=== PATIENT | female | born 1950 | race Hispanic/Latino ===

== ENCOUNTER 2019-05-16 11:54 | Outpatient (CLI) | payer MEDICARE ==
--- NOTE | 2019-05-16 13:21 | XRay Report ---
CHEST XRAY, 2 VIEWS: History: Cough. Findings: There is mild diffuse interstitial coarsening. The lungs are hyperexpanded but clear. No infiltrate, pleural fluid or pneumothorax is detected. The cardiac silhouette and pulmonary vasculature are within normal limits for technique. Severe scoliosis is noted. Leads to mechanical device tracks superiorly in the left neck soft tissues. IMPRESSION: Changes consistent with COPD. No acute cardiopulmonary process.
== END 2019-05-16 11:55 | disposition home or self-care (01) ==
LOC: XRAY 11:54
PROVIDERS: ATTEND Specialist
DX: J44.9 Chronic obstructive pulmonary disease, unspecified (principal); M41.80 Other forms of scoliosis, site unspecified
CPT/HCPCS: 71046

== ENCOUNTER 2019-11-30 11:13 | Inpatient (IN) | payer MEDICARE ==
--- NOTE | 2019-11-30 11:23 | Event Note ---
ED Screening Note Date of service: 11/30/19 Time: 11:21 ED Screening Note: 69 y o f with PMH of COPD presents with sob This initial assessment/diagnostic orders/clinical plan/treatment(s) is/are subject to change based on patients health status, clinical progression and re- assessment by fellow clinical providers in the ED. Further treatment and workup at subsequent clinical providers discretion. Patient/guardian urged not to elope from the ED as their condition may be serious if not clinically assessed and managed. Initial orders include: cxr O2 in triage Main side eval
--- NOTE | 2019-11-30 12:09 | XRay Report ---
CHEST PA AND LATERAL VIEWS INDICATION: Dyspnea. COMPARISON: 05/16/2019. FINDINGS: Support devices: None. Heart: Within normal limits. Lungs/Pleura: No acute pulmonary or pleural findings. Thoracolumbar scoliosis is again noted. IMPRESSION: 1. No acute findings. Signer Name: Jorden Perez MD Signed: 11/30/2019 12:05 PM Workstation Name: [id number]
[2019-11-30 12:10] LABS: Basophils % (Auto) 0.6 % (0.0-1.8); Eosinophils # (Auto) 0.1 K/mm3 (0.0-0.4); Eosinophils % (Auto) 1.8 % (0.0-4.3); Hematocrit 40.6 % (30.3-42.9); Hemoglobin 13.7 gm/dl (10.1-14.3); Lymphocytes # (Auto) 1.7 K/mm3 (1.2-5.4); Lymphocytes % (Auto) 21.9 % (13.4-35.0); Mean Corpuscular HGB Conc 34 % (30-34); Mean Corpuscular Volume 105 fl (79-97); Monocytes # (Auto) 0.3 K/mm3 (0.0-0.8); Monocytes % (Auto) 4.6 % (0.0-7.3); Platelet Count 286 K/mm3 (140-440); Red Blood Count 3.87 M/mm3 (3.65-5.03); Red Cell Distribution Width 14.9 % (13.2-15.2)
[2019-11-30] MEDS ORDERED: clonazePAM 0.5 MG TAB PO ONE (12:17)
[2019-11-30] MEDS ORDERED: ALBUTEROL 2.5 MG/3 ML NEBU IH ONE (12:17)
[2019-11-30] MEDS ORDERED: IPRATROPIUM 0.02% NEBU 2.5 ML IH ONE (12:17)
[2019-11-30] MEDS ORDERED: methylPREDNISolone Sod Succinate 125 MG/2 ML INJ IV ONE (12:17)
[2019-11-30] MEDS ORDERED: MAGNESIUM SULFATE 2 GM/50 ML BAG IV ONE (12:17)
[2019-11-30 12:31] LABS: BUN/Creatinine Ratio 35; Blood Urea Nitrogen 14 mg/dL (7-17); Calcium 8.5 mg/dL (8.4-10.2); Hemolysis Index 11
--- NOTE | 2019-11-30 12:49 | Emergency Department Report ---
ED Shortness of Breath HPI - General Chief Complaint: Dyspnea/Respdistress Stated Complaint: ANGELIQUE Time Seen by Provider: 11/30/19 12:10 Source: patient Mode of arrival: Ambulatory Limitations: No Limitations - History of Present Illness Initial Comments: 69-year-old female the past medical history of asthma, COPD without oxygen dependence and continued smoking presents to the hospital complaining of wheezing and shortness breath reported missing today. She ran out of her inhaler several days ago. Patient does not have a nebulizer. She denies previ ous intubations. She complains of a dry cough without fever or chest pain. Manufacturing Software Engineer: Dr Mercado. - Related Data Home Medications Medication Instructions Recorded Confirmed Last Taken Mirtazapine [Remeron 30mg TAB] 30 mg PO HS 10/15/13 11/13/18 11/03/18 20:00 Mometasone/Formoterol [Dulera 100 2 puff IH BID 09/08/14 11/12/18 11/04/18 06:30 Mcg/5 Mcg Inhaler] Albuterol Sulfate [Ventolin HFA] 2 puff IH PRN PRN 11/03/18 11/12/18 11/04/18 06:30 Ipratropium [place] [Atrovent Hfa] 12.9 gm IH PRN PRN 11/03/18 11/12/18 11/04/18 06:30 Levothyroxine [Synthroid] 25 mcg PO QAM 11/03/18 11/12/18 11/04/18 06:30 clonazePAM [Klonopin] 1 mg PO HS 11/03/18 11/13/18 11/03/18 21:00 Klonopin 0.5 mg PO QAM 11/13/18 11/13/18 Unknown Previous Rx's Medication Instructions Recorded Last Taken Type oxyCODONE [roxiCODONE] 5 mg PO Q6HR PRN #20 tablet 11/04/18 11/11/18 08:00 Rx predniSONE [Deltasone] 0 mg PO QDAY 16 Days tab 11/15/18 Unknown Rx Allergies Allergy/AdvReac Type Severity Reaction Status Date / Time ibuprofen Allergy Vomiting Verified 11/12/18 21:18 hydrocodone bitartrate AdvReac Itching Verified 11/12/18 21:18 [From Vicodin] Sulfa (Sulfonamide AdvReac Vomiting Verified 11/12/18 21:18 Antibiotics) ED Review of Systems ROS: Stated complaint: ANGELIQUE Other details as noted in HPI Comment: All other systems reviewed and negative ED Past Medical Hx - Past Medical History Previous Medical History?: Yes Hx Hypertension: No Hx Congestive Heart Failure: No Hx Diabetes: No Hx Arthritis: Yes Hx Headaches / Migraines: Yes (MIGRAINES) Hx Asthma: Yes (bronchitis) Hx COPD: Yes (DAILY INHALERS) Hx HIV: No Additional medical history: HAND TREMORS, Bronchitis, Central Hand Tremors - Surgical History Past Surgical History?: Yes Hx Cholecystectomy: Yes Additional Surgical History: tubal ligation, left arm fracture 09/2018, BRAIN Stimulator - Social History Smoking Status: Current Every Day Smoker Substance Use Type: None - Medications Home Medications: Home Medications Medication Instructions Recorded Confirmed Last Taken Type Mirtazapine [Remeron 30mg TAB] 30 mg PO HS 10/15/13 11/13/18 11/03/18 20:00 History Mometasone/Formoterol [Dulera 100 2 puff IH BID 09/08/14 11/12/18 11/04/18 06:30 History Mcg/5 Mcg Inhaler] Albuterol Sulfate [Ventolin HFA] 2 puff IH PRN PRN 11/03/18 11/12/18 11/04/18 06:30 History Ipratropium [place] [Atrovent Hfa] 12.9 gm IH PRN PRN 11/03/18 11/12/18 11/04/18 06:30 History Levothyroxine [Synthroid] 25 mcg PO QAM 11/03/18 11/12/18 11/04/18 06:30 History clonazePAM [Klonopin] 1 mg PO HS 11/03/18 11/13/18 11/03/18 21:00 History oxyCODONE [roxiCODONE] 5 mg PO Q6HR PRN #20 tablet 11/04/18 11/12/18 11/11/18 08:00 Rx Klonopin 0.5 mg PO QAM 11/13/18 11/13/18 Unknown History predniSONE [Deltasone] 0 mg PO QDAY 16 Days tab 11/15/18 Unknown Rx ED Physical Exam - General Limitations: No Limitations - Other Other exam information: General: No acute distress Head: Atraumatic Eyes: normal appearance ENT: Moist mucous membranes Neck: Normal appearance, no midline tenderness Chest: Tachypnea, wheezing CV: Tachycardic regular rhythm Abdomen: Soft, normal bowel sounds, nontender, nondistended, no rebound or guarding Back: Normal inspection Extremity: Normal inspection, full range of motion, no calf tenderness or leg edema Neuro: Alert O x 3, no facial asymmetry, speech clear, no gross motor sensory deficit Psych: Appropriate behavior Skin: No rash ED Course Vital Signs 11/30/19 11/30/19 11/30/19 11:17 12:16 12:28 Temperature 99.2 F 98.7 F Pulse Rate 121 H 109 H Pulse Rate [ 106 H Anterior Bilateral Throughout] Respiratory 18 18 Rate Respiratory 24 Rate [Anterior Bilateral Throughout] Blood Pressure 122/54 Blood Pressure 113/62 [Right] O2 Sat by Pulse 63 L 95 Oximetry ED Medical Decision Making - Lab Data Result diagrams: 11/30/19 11:47 11/30/19 11:47 Lab Results 11/30/19 11/30/19 Range/Units 11:47 11:47 WBC 7.6 (4.5-11.0) K/mm3 RBC 3.87 (3.65-5.03) M/mm3 Hgb 13.7 (10.1-14.3) gm/dl Hct 40.6 (30.3-42.9) % MCV 105 H (79-97) fl MCH 36 H (28-32) pg MCHC 34 (30-34) % RDW 14.9 (13.2-15.2) % Plt Count 286 (140-440) K/mm3 Lymph % (Auto) 21.9 (13.4-35.0) % [place] % (Auto) 4.6 (0.0-7.3) % Eos % (Auto) 1.8 (0.0-4.3) % Baso % (Auto) 0.6 (0.0-1.8) % Lymph # 1.7 (1.2-5.4) K/mm3 [place] # 0.3 (0.0-0.8) K/mm3 Eos # 0.1 (0.0-0.4) K/mm3 Baso # 0.0 (0.0-0.1) K/mm3 Seg Neutrophils % 71.1 H (40.0-70.0) % Seg Neutrophils # 5.4 (1.8-7.7) K/mm3 Sodium 144 (137-145) mmol/L Potassium 4.1 (3.6-5.0) mmol/L Chloride 105.3 (98-107) mmol/L Carbon Dioxide 29 (22-30) mmol/L Anion Gap 14 mmol/L BUN 14 (7-17) mg/dL Creatinine 0.4 L (0.7-1.2) mg/dL Estimated GFR > 60 ml/min BUN/Creatinine Ratio 35 % Glucose 122 H (65-100) mg/dL Calcium 8.5 (8.4-10.2) mg/dL - EKG Data -: EKG Interpreted by Me EKG shows normal: sinus rhythm, ST-T waves (no stemi) Rate: tachycardia (106) - Radiology Data Radiology results: report reviewed CHEST PA AND LATERAL VIEWS INDICATION: Dyspnea. COMPARISON: 05/16/2019. FINDINGS: Support devices: None. Heart: Within normal limits. Lungs/Pleura: No acute pulmonary or pleural findings. Thoracolumbar scoliosis is again noted. IMPRESSION: 1. No acute findings. - Medical Decision Making Patient presents to the hospital with COPD exacerbation with hypoxia and did not have any of her medications at home. Patient treated in the ER with bronchodilators, Solu-Medrol, and magnesium with some improvement. Patient also chronically on Klonopin. She reports she takes Klonopin 0.5mg twice a day last dose yesterday AM. Given the patient presented with tachycardia she was given Klonopin 0.5 mg during her treatment here today. Hospitalist Dr Austin informed for admission. - Differential Diagnosis bronchitis, pneumonia, asthma Critical Care Time: No Critical care attestation.: If time is entered above; I have spent that time in minutes in the direct care of this critically ill patient, excluding procedure time. ED Disposition Clinical Impression: COPD with acute exacerbation, Hypoxia Disposition: OP ADMIT IP TO THIS HOSP Is pt being admited?: Yes Condition: Stable Time of Disposition: 12:48 (DR galeana/leslie Austin)
[2019-11-30] MEDS ORDERED: oxyCODONE 5 MG TAB PO PRN (14:12)
[2019-11-30] MEDS ORDERED: ALBUTEROL 2.5 MG/3 ML NEBU IH PRN (14:14)
[2019-11-30] MEDS ORDERED: ONDANSETRON 4 MG/2 ML INJ IV PRN (14:14)
[2019-11-30] MEDS ORDERED: ACETAMINOPHEN 325 MG TAB PO PRN (14:14)
--- NOTE | 2019-11-30 14:14 | History and Physical Report ---
History of Present Illness Date of admission: 11/30/19 12:50 Chief complaint: sob History of present illness: 69-year-old woman with past medical history of COPD, patient known to Dr. Mercado. She presents with shortness of breath. She reports running out of her inhaler several days ago. She does not use a nebulizer at home. Has symptoms associated with nonproductive cough, she denies fever or chest pain. She also admits wheezing. The patient reports ongoing tobacco abuse. PAST MEDICAL HISTORY:COPD, migraine PAST SURGICAL HISTORY: : gall bladder tubal ligation, surgery on left arm after fracture, BRAIN Stimulator SOCIAL HISTORY: No alcohol, no drugs, current everyday smoker FAMILY HISTORY: Hypertension Medications and Allergies Allergies Allergy/AdvReac Type Severity Reaction Status Date / Time ibuprofen Allergy Vomiting Verified 11/12/18 21:18 hydrocodone bitartrate AdvReac Itching Verified 11/12/18 21:18 [From Vicodin] Sulfa (Sulfonamide AdvReac Vomiting Verified 11/12/18 21:18 Antibiotics) Home Medications Medication Instructions Recorded Confirmed Last Taken Type Mirtazapine [Remeron 30mg TAB] 30 mg PO HS 10/15/13 11/13/18 11/03/18 20:00 History Mometasone/Formoterol [Dulera 100 2 puff IH BID 09/08/14 11/12/18 11/04/18 06:30 History Mcg/5 Mcg Inhaler] Albuterol Sulfate [Ventolin HFA] 2 puff IH PRN PRN 11/03/18 11/12/18 11/04/18 06:30 History Ipratropium [place] [Atrovent Hfa] 12.9 gm IH PRN PRN 11/03/18 11/12/18 11/04/18 06:30 History Levothyroxine [Synthroid] 25 mcg PO QAM 11/03/18 11/12/18 11/04/18 06:30 History clonazePAM [Klonopin] 1 mg PO HS 11/03/18 11/13/18 11/03/18 21:00 History oxyCODONE [roxiCODONE] 5 mg PO Q6HR PRN #20 tablet 11/04/18 11/12/18 11/11/18 08:00 Rx Klonopin 0.5 mg PO QAM 11/13/18 11/13/18 Unknown History predniSONE [Deltasone] 0 mg PO QDAY 16 Days tab 11/15/18 Unknown Rx Active Meds: Active Medications Levothyroxine Sodium (Synthroid) 25 mcg PO QAM MARTHA Mirtazapine (Remeron) 30 mg PO HS MARTHA Miscellaneous Medication (Clonazepam [Klonopin]) 1 mg PO HS MARTHA Miscellaneous Medication (Klonopin) 0.5 mg PO QAM MARTHA Oxycodone HCl (Roxicodone) 5 mg PO Q6HR PRN PRN Reason: PAIN Review of Systems All systems: negative (sob, cough and wheezing) Exam - Constitutional Vitals: Temp Pulse Resp BP Pulse Ox 98.7 F 105 H 19 123/63 98 11/30/19 12:16 11/30/19 13:00 11/30/19 13:00 11/30/19 13:00 11/30/19 13:00 General appearance: Present: mild distress, well-nourished - EENT Eyes: Present: PERRL ENT: hearing intact, clear oral mucosa - Neck Neck: Present: supple, normal ROM - Respiratory Respiratory effort: normal Respiratory: bilateral: diminished, wheezing - Cardiovascular Heart Sounds: Present: S1 & S2. Absent: rub, click - Extremities Extremities: pulses symmetrical, No edema Peripheral Pulses: within normal limits - Abdominal General gastrointestinal: Present: soft, non-tender, non-distended, normal bowel sounds Female genitourinary: Present: normal - Integumentary Integumentary: Present: clear, warm, dry - Musculoskeletal Musculoskeletal: gait normal, strength equal bilaterally - Psychiatric Psychiatric: appropriate mood/affect, intact judgment & insight - Neurologic Neurologic: CNII-XII intact, moves all extremities Results - Labs CBC & Chem 7: 11/30/19 11:47 11/30/19 11:47 Labs: Laboratory Last Values WBC 7.6 K/mm3 (4.5-11.0) 11/30/19 11:47 RBC 3.87 M/mm3 (3.65-5.03) 11/30/19 11:47 Hgb 13.7 gm/dl (10.1-14.3) 11/30/19 11:47 Hct 40.6 % (30.3-42.9) 11/30/19 11:47 MCV 105 fl (79-97) H 11/30/19 11:47 MCH 36 pg (28-32) H 11/30/19 11:47 MCHC 34 % (30-34) 11/30/19 11:47 RDW 14.9 % (13.2-15.2) 11/30/19 11:47 Plt Count 286 K/mm3 (140-440) 11/30/19 11:47 Lymph % (Auto) 21.9 % (13.4-35.0) 11/30/19 11:47 [place] % (Auto) 4.6 % (0.0-7.3) 11/30/19 11:47 Eos % (Auto) 1.8 % (0.0-4.3) 11/30/19 11:47 Baso % (Auto) 0.6 % (0.0-1.8) 11/30/19 11:47 Lymph # 1.7 K/mm3 (1.2-5.4) 11/30/19 11:47 [place] # 0.3 K/mm3 (0.0-0.8) 11/30/19 11:47 Eos # 0.1 K/mm3 (0.0-0.4) 11/30/19 11:47 Baso # 0.0 K/mm3 (0.0-0.1) 11/30/19 11:47 Seg Neutrophils % 71.1 % (40.0-70.0) H 11/30/19 11:47 Seg Neutrophils # 5.4 K/mm3 (1.8-7.7) 11/30/19 11:47 Sodium 144 mmol/L (137-145) 11/30/19 11:47 Potassium 4.1 mmol/L (3.6-5.0) 11/30/19 11:47 Chloride 105.3 mmol/L (98-107) 11/30/19 11:47 Carbon Dioxide 29 mmol/L (22-30) 11/30/19 11:47 Anion Gap 14 mmol/L 11/30/19 11:47 BUN 14 mg/dL (7-17) 11/30/19 11:47 Creatinine 0.4 mg/dL (0.7-1.2) L 11/30/19 11:47 Estimated GFR > 60 ml/min 11/30/19 11:47 BUN/Creatinine Ratio 35 % 11/30/19 11:47 Glucose 122 mg/dL (65-100) H 11/30/19 11:47 Calcium 8.5 mg/dL (8.4-10.2) 11/30/19 11:47 Assessment and Plan Assessment and plan: 61-year-old woman who presents to the hospital shortness of breath and wheezing, dry cough, consistent with COPD exacerbation Chest x-ray; no acute findings patient is here Copd exacerbation; steroids, nebs, pulmonology consults, aggressive chest PT Acute hypoxic respiratory failure; continue supplemental oxygen, she desaturated to the 60s in the ER, now improved after treatments and oxygen Tobacco abuse/dependence Smoking cessation counseling performed for 10 minutes, nicotine patches when necessary Preventative health counseling performed for 17 minutes Hypothyroidism; continue Synthroid, check thyroid function tests she reports running out of her inhalers and home medications. Patient will need refills of all her medications prior to discharge dvt ppx lovenox
--- NOTE | 2019-11-30 15:13 | Consultation ---
History of Present Illness Consult date: 11/30/19 Requesting physician: ANDREW SCHMIDT Reason for consult: COPD History of present illness: 69 y/o female, last admitted to the hospital in 2018 admitted with COPD exacerbation. Per chart, patient ran out of medicine several days ago. No calls made to office for refills. CXR is negative. Past History Past Medical History: COPD, hypothyroidism, other (insomnia/anxiety) Past Surgical History: No surgical history Social history: no significant social history Family history: no significant family history Medications and Allergies Allergies Allergy/AdvReac Type Severity Reaction Status Date / Time ibuprofen Allergy Vomiting Verified 11/12/18 21:18 hydrocodone bitartrate AdvReac Itching Verified 11/12/18 21:18 [From Vicodin] Sulfa (Sulfonamide AdvReac Vomiting Verified 11/12/18 21:18 Antibiotics) Home Medications Medication Instructions Recorded Confirmed Last Taken Type Mirtazapine [Remeron 30mg TAB] 30 mg PO HS 10/15/13 11/13/18 11/03/18 20:00 History Mometasone/Formoterol [Dulera 100 2 puff IH BID 09/08/14 11/12/18 11/04/18 06:30 History Mcg/5 Mcg Inhaler] Albuterol Sulfate [Ventolin HFA] 2 puff IH PRN PRN 11/03/18 11/12/18 11/04/18 06:30 History Ipratropium [place] [Atrovent Hfa] 12.9 gm IH PRN PRN 11/03/18 11/12/18 11/04/18 06:30 History Levothyroxine [Synthroid] 25 mcg PO QAM 11/03/18 11/12/18 11/04/18 06:30 History clonazePAM [Klonopin] 1 mg PO HS 11/03/18 11/13/18 11/03/18 21:00 History oxyCODONE [roxiCODONE] 5 mg PO Q6HR PRN #20 tablet 11/04/18 11/12/18 11/11/18 08:00 Rx Klonopin 0.5 mg PO QAM 11/13/18 11/13/18 Unknown History predniSONE [Deltasone] 0 mg PO QDAY 16 Days tab 11/15/18 Unknown Rx Active Meds: Active Medications Acetaminophen (Tylenol) 650 mg PO Q4H PRN PRN Reason: Pain MILD(1-3)/Fever >100.5/[place]UR[place] Albuterol (Proventil) 2.5 mg IH Q4HRT PRN PRN Reason: Shortness Of Breath Albuterol/Ipratropium (Duoneb *Not For Prn Use*) 1 ampul IH Q6HRT MARTHA Budesonide (Pulmicort) 0.5 mg IH Q12HRT MARTHA Clonazepam (Klonopin) 1 mg PO QHS MARTHA Clonazepam (Klonopin) 0.5 mg PO QAM MARTHA Levothyroxine Sodium (Synthroid) 25 mcg PO QAM MARTHA Methylprednisolone Sodium Succinate (Solu-Medrol) 40 mg IV Q8HR MARTHA Mirtazapine (Remeron) 30 mg PO HS MARTHA Ondansetron HCl (Zofran) 4 mg IV Q8H PRN PRN Reason: Nausea And Vomiting Oxycodone HCl (Roxicodone) 5 mg PO Q6HR PRN PRN Reason: PAIN Sodium Chloride (Sodium Chloride Flush Syringe 10 Ml) 10 ml IV BID MARTHA Sodium Chloride (Sodium Chloride Flush Syringe 10 Ml) 10 ml IV PRN PRN PRN Reason: LINE FLUSH Stop: 12/03/19 14:13 Review of Systems All systems: negative Physical Examination Vital signs: Vital Signs Temp Pulse Resp BP Pulse Ox 99.2 F 121 H 18 122/54 63 L 11/30/19 11:17 11/30/19 11:17 11/30/19 11:17 11/30/19 11:17 11/30/19 11:17 General appearance: no acute distress, alert Eyes: non-icteric Neck: supple Effort: normal Ascultation: Bilateral: diminished breath sounds, wheezes Results - Laboratory Findings CBC and BMP: 11/30/19 11:47 12/01/19 05:22 Abnormal lab findings: Abnormal Labs 11/30/19 11/30/19 11:47 11:47 MCV 105 H MCH 36 H Seg Neutrophils % 71.1 H Creatinine 0.4 L Glucose 122 H Assessment and Plan 69 y/o female with COPD exacerbation 1. Agree with no abx therapy given clear CXR and no white count 2. Continue IV steroids, can likely change to PO prednisone at 60 daily starting tomorrow and taper over two weeks time frame 3. Resume home medications and please provide refills for what she needs
[2019-11-30] MEDS: methylPREDNISolone Sod Succinate 40 MG/1 ML INJ IV SCH ×2 (16:23→22:34)
[2019-11-30] MEDS: IPRATROPIUM/ALBUTEROL SULFATE 3 ML AMPUL.NEB IH SCH ×2 (16:33→21:22)
[2019-11-30] MEDS: BUDESONIDE 0.5 MG/2 ML NEBU IH SCH (21:22)
[2019-11-30] MEDS: ARFORMOTEROL 15 MCG/2 ML NEBU IH SCH (21:22)
[2019-11-30] MEDS ORDERED: MIRTAZAPINE 30 MG TAB PO SCH (22:00)
[2019-11-30] MEDS ORDERED: clonazePAM 0.5 MG TAB PO SCH (22:00)
[2019-11-30] MEDS ORDERED: NON-FORMULARY EACH (Clonazepam [Klonopin] 1 MG) PO SCH (22:00)
[2019-11-30] MEDS: NICOTINE 14 MG/24 HR PATCH TD SCH (22:33)
[2019-11-30] MEDS: ENOXAPARIN 40 MG/0.4 ML INJ SUB-Q SCH (22:34)
[2019-12-01] MEDS: IPRATROPIUM/ALBUTEROL SULFATE 3 ML AMPUL.NEB IH SCH ×4 (03:07→20:37)
[2019-12-01] MEDS: methylPREDNISolone Sod Succinate 40 MG/1 ML INJ IV SCH ×3 (05:36→21:20)
[2019-12-01 06:16] LABS: BUN/Creatinine Ratio 45; Blood Urea Nitrogen 18 mg/dL (7-17); Calcium 8.1 mg/dL (8.4-10.2); Hemolysis Index 14
[2019-12-01] MEDS: ARFORMOTEROL 15 MCG/2 ML NEBU IH SCH ×2 (08:03→20:36)
[2019-12-01] MEDS: BUDESONIDE 0.5 MG/2 ML NEBU IH SCH ×2 (08:03→20:36)
[2019-12-01] MEDS ORDERED: KLONOPIN 0.5 MG PO SCH (10:00)
[2019-12-01] MEDS ORDERED: clonazePAM 0.5 MG TAB PO SCH (10:00)
[2019-12-01] MEDS: NICOTINE 14 MG/24 HR PATCH TD SCH (10:31)
[2019-12-01] MEDS: LEVOTHYROXINE 25 MCG TAB PO SCH (10:32)
--- NOTE | 2019-12-01 10:59 | Progress Note ---
Assessment and Plan Assessment and plan: 69-year-old woman with past medical history of COPD, patient known to Dr. Mercado. She presents with shortness of breath. She reports running out of her inhaler several days ago. She does not use a nebulizer at home. Has symptoms associated with nonproductive cough, she denies fever or chest pain. She also admits wheezing. The patient reports ongoing tobacco abuse. Appears lethargic, Still Cough Taper steroids Very stressful condition at home tobacco dependance anticipate discharge in am 61-year-old woman who presents to the hospital shortness of breath and wheezing, dry cough, consistent with COPD exacerbation Chest x-ray; no acute findings patient is here Copd exacerbation; steroids, nebs, pulmonology consults input and recommendation noted, aggressive chest PT Acute hypoxic respiratory failure; continue supplemental oxygen, she desaturated to the 60s in the ER, now improved after treatments and oxygen Tobacco abuse/dependence Smoking cessation counseling performed for 10 minutes, nicotine patches when necessary Preventative health counseling performed for 17 minutes Hypothyroidism; continue Synthroid, check thyroid function tests she reports running out of her inhalers and home medications. Patient will need refills of all her medications prior to discharge dvt ppx lovenox Extensive discussion with the patient about need to seek for help considering the stressful condition at home she verbalized understanding. She will discuss with her family members. Anticipate discharge in a.m. History Interval history: Patient seen and examined this morning reports improvement but not quite at her baseline she still has persistent cough. She still unfortunately smokes although she states that she had cut down from 3 packs to half a pack a day. She reports that her is sick and the only way she pete with it is with her Klonopin and tobacco. She still has some expiratory wheezes Hospitalist Physical - Physical exam Narrative exam: VITAL SIGNS: Reviewed. GENERAL: The patient appears chronically ill, cachectic, Vital signs as documented. HEAD: No signs of head trauma. EYES: Pupils are equal. Extraocular motions intact. EARS: Hearing grossly intact. MOUTH: Oropharynx is normal. NECK: No adenopathy, no JVD. CHEST: Chest with wheezing breath sounds bilaterally expiratory moderate expiratory. No, rales, or rhonchi. CARDIAC: Regular rate and rhythm. S1 and S2, without murmurs, gallops, or rubs. VASCULAR: No Edema. Peripheral pulses normal and equal in all extremities. ABDOMEN: Soft, non tender and non distended. No rebound or guarding, and no masses palpated. Bowel Sounds normal. MUSCULOSKELETAL: Good range of motion of all major joints. Extremities without clubbing, cyanosis or edema. NEUROLOGIC EXAM: Alert and oriented x 3 No focal sensory or strength deficits. Speech normal. Follows commands. PSYCHIATRIC: Mood normal. SKIN: detial exam as documented in skin assessment - Constitutional Vitals: Temp Pulse Resp BP Pulse Ox 98.2 F 91 H 18 100/57 92 12/01/19 07:35 12/01/19 08:03 12/01/19 08:03 12/01/19 07:35 12/01/19 08:01 General appearance: Present: mild distress, well-nourished Results - Labs CBC & Chem 7: 11/30/19 11:47 12/01/19 05:22 Labs: Laboratory Last Values WBC 7.6 K/mm3 (4.5-11.0) 11/30/19 11:47 RBC 3.87 M/mm3 (3.65-5.03) 11/30/19 11:47 Hgb 13.7 gm/dl (10.1-14.3) 11/30/19 11:47 Hct 40.6 % (30.3-42.9) 11/30/19 11:47 MCV 105 fl (79-97) H 11/30/19 11:47 MCH 36 pg (28-32) H 11/30/19 11:47 MCHC 34 % (30-34) 11/30/19 11:47 RDW 14.9 % (13.2-15.2) 11/30/19 11:47 Plt Count 286 K/mm3 (140-440) 11/30/19 11:47 Lymph % (Auto) 21.9 % (13.4-35.0) 11/30/19 11:47 Ralls % (Auto) 4.6 % (0.0-7.3) 11/30/19 11:47 Eos % (Auto) 1.8 % (0.0-4.3) 11/30/19 11:47 Baso % (Auto) 0.6 % (0.0-1.8) 11/30/19 11:47 Lymph # 1.7 K/mm3 (1.2-5.4) 11/30/19 11:47 Ralls # 0.3 K/mm3 (0.0-0.8) 11/30/19 11:47 Eos # 0.1 K/mm3 (0.0-0.4) 11/30/19 11:47 Baso # 0.0 K/mm3 (0.0-0.1) 11/30/19 11:47 Seg Neutrophils % 71.1 % (40.0-70.0) H 11/30/19 11:47 Seg Neutrophils # 5.4 K/mm3 (1.8-7.7) 11/30/19 11:47 Sodium 141 mmol/L (137-145) 12/01/19 05:22 Potassium 4.2 mmol/L (3.6-5.0) 12/01/19 05:22 Chloride 102.9 mmol/L (98-107) 12/01/19 05:22 Carbon Dioxide 26 mmol/L (22-30) 12/01/19 05:22 Anion Gap 16 mmol/L 12/01/19 05:22 BUN 18 mg/dL (7-17) H 12/01/19 05:22 Creatinine 0.4 mg/dL (0.7-1.2) L 12/01/19 05:22 Estimated GFR > 60 ml/min 12/01/19 05:22 BUN/Creatinine Ratio 45 % 12/01/19 05:22 Glucose 149 mg/dL (65-100) H 12/01/19 05:22 Calcium 8.1 mg/dL (8.4-10.2) L 12/01/19 05:22 TSH 0.276 mlU/mL (0.270-4.200) 12/01/19 05:22 Free T4 0.80 ng/dL (0.76-1.46) 12/01/19 05:22 Thyroxine (T4) 5.7 ug/dL (4.0-12.0) 12/01/19 05:22 Active Medications - Current Medications Current Medications: Generic Name Dose Route Start Last Admin Trade Name Freq PRN Reason Stop Dose Admin Acetaminophen 650 mg 11/30/19 14:14 Tylenol PO Q4H PRN Pain MILD(1-3)/Fever >100.5/TURNER Albuterol 2.5 mg 11/30/19 14:14 11/30/19 16:33 Proventil IH 2.5 mg Q4HRT PRN Administration Shortness Of Breath Albuterol/Ipratropium 1 ampul 11/30/19 14:15 12/01/19 08:03 Duoneb *Not For Prn Use* IH Not Given Q6HRT MARTHA Arformoterol Tartrate 15 mcg 11/30/19 20:00 12/01/19 08:03 Brovana Nebu IH 15 mcg Q12HRT MARTHA Administration Budesonide 0.5 mg 11/30/19 20:00 12/01/19 08:03 Pulmicort IH 0.5 mg Q12HRT MARTHA Administration Clonazepam 1 mg 11/30/19 22:00 11/30/19 22:34 Klonopin PO 1 mg QHS MARTHA Administration Clonazepam 0.5 mg 12/01/19 10:00 12/01/19 10:33 Klonopin PO 0.5 mg QAM MARTHA Administration Enoxaparin Sodium 40 mg 11/30/19 22:00 11/30/19 22:34 Enoxaparin SUB-Q 40 mg QDAY@2200 [facility] Administration Levothyroxine Sodium 25 mcg 12/01/19 10:00 12/01/19 10:32 Synthroid PO 25 mcg QAM [facility] Administration Methylprednisolone Sodium Succinate 40 mg 11/30/19 15:00 12/01/19 05:36 Solu-Medrol IV 40 mg Q8HR MARTHA Administration Mirtazapine 30 mg 11/30/19 22:00 11/30/19 22:34 Remeron PO 30 mg HS [facility] Administration Nicotine 14 mg 11/30/19 19:00 12/01/19 10:31 Habitrol TD Not Given QDAY [facility] Ondansetron HCl 4 mg 11/30/19 14:14 Zofran IV Q8H PRN Nausea And Vomiting Oxycodone HCl 5 mg 11/30/19 14:12 Roxicodone PO Q6HR PRN PAIN Sodium Chloride 10 ml 11/30/19 22:00 12/01/19 10:33 Sodium Chloride Flush Syringe 10 Ml IV 10 ml BID MARTHA Administration Sodium Chloride 10 ml 11/30/19 14:14 Sodium Chloride Flush Syringe 10 Ml IV 12/03/19 14:13 PRN PRN LINE FLUSH Nutrition/Malnutrition Assess - Dietary Evaluation Nutrition/Malnutrition Findings: Nutrition Notes Start: 12/01/19 10:23 Freq: Status: Active Protocol: Document 12/01/19 10:23 LP (Rec: 12/01/19 10:35 LP [id number]) Nutrition Notes Need for Assessment generated from: MD Order Initial or Follow up Assessment Current Diagnosis COPD Other Pertinent Diagnosis Asthma, right and left elbow wound Current Diet Regular Labs/Tests BUN 18 BG 149 Pertinent Medications Solumedrol Height 5 ft 3 in Weight 45.359 kg Usual Body Weight 59 kg [place] Body Weight (kg) 52.27 BMI 17.6 Intake Prior to Admission Good Weight change and time frame 23% wt loss in 5 months Weight Status Underweight Subjective/Other Information Consult for supplement. Pt states eating well [employer], but lost wt. Pt states being stressed from of daughter as well as husbands deteriorating health. Pt states not eating this morning because she did not like the food. Food preferences noted. Pt denies need for supplement. Burn Absent Trauma Absent GI Symptoms None Current % PO Poor (25-49%) Minimum of two criteria No Interpretation of Weight Loss (severe) >7.5% in 3 months #2 Nutrition Diagnosis Predicted suboptimal energy intake Etiology food preferences As Evidenced by Signs and Symptoms Pt did not eat breakfast this AM due to not liking food. #1 Nutrition Diagnosis Unintended weight loss Etiology COPD/stress As Evidenced by Signs and Symptoms Pt states wt loss of 23% in 5 months, but was eating well. Is patient on ventilator? No Is Patient Ambulatory and/or Out of Bed No REE-([facility]-confined to bed) 1149.240 Kcal/Kg value to use for calculation 35 Approximate Energy Requirements Using 1588 kcal/Kg Calculation Used for Recommendations Kcal/kg Additional Notes Protein needs are 45-54g (1.2- 1.5g/kg) Fluid needs are 1ml/kcal Nutrition Intervention Change Diet Order: Continue Add Supplement/Snack (indicate name/kcal Denies need /protein ) Goal #1 Meet at least 80% of kcal and protein needs Goal #2 Wt maintenance/gain Anticipated Discharge Needs: Regular diet Follow-Up By: 12/05/19 Additional Comments Follow for intakes
--- NOTE | 2019-12-01 16:35 | Progress Note ---
Assessment and Plan 69 y/o female with COPD exacerbation 1. Agree with no abx therapy given clear CXR and no white count 2. Discharge on Prednisone 60 daily for 3 days, 40 daily for 3 days, 20 daily for 3 days, then stop 3. Resume home regimen 4. Follow up in office in 10-14 days. Subjective Date of service: 12/01/19 Interval history: No acute events. Ready to go home. Objective Vital Signs - 12hr 12/01/19 12/01/19 12/01/19 07:35 08:01 08:03 Temperature 98.2 F Pulse Rate 87 Pulse Rate [ 91 H Anterior Bilateral Throughout] Respiratory 20 Rate Respiratory 18 Rate [Anterior Bilateral Throughout] Blood Pressure 100/57 O2 Sat by Pulse 91 92 Oximetry 12/01/19 12/01/19 13:46 14:14 Temperature 98.1 F Pulse Rate 89 Pulse Rate [ 90 Anterior Bilateral Throughout] Respiratory 20 Rate Respiratory 20 Rate [Anterior Bilateral Throughout] Blood Pressure 104/60 O2 Sat by Pulse 93 Oximetry Constitutional: no acute distress, alert Eyes: non-icteric Neck: supple Effort: normal Ascultation: Bilateral: diminished breath sounds, wheezes CBC and BMP: 11/30/19 11:47 12/01/19 05:22 Abnormal lab findings: Abnormal Labs 11/30/19 11/30/19 12/01/19 11:47 11:47 05:22 MCV 105 H MCH 36 H Seg Neutrophils % 71.1 H BUN 18 H Creatinine 0.4 L 0.4 L Glucose 122 H 149 H Calcium 8.1 L
[2019-12-01] MEDS: ENOXAPARIN 40 MG/0.4 ML INJ SUB-Q SCH (21:19)
[2019-12-01] MEDS: clonazePAM 0.5 MG TAB PO SCH (21:19)
[2019-12-01] MEDS: MIRTAZAPINE 30 MG TAB PO SCH (21:20)
[2019-12-01] MEDS ORDERED: FORMOTEROL IH SCH (22:00)
[2019-12-01] MEDS ORDERED: MOMETASONE IH SCH (22:00)
[2019-12-02] MEDS: IPRATROPIUM/ALBUTEROL SULFATE 3 ML AMPUL.NEB IH SCH ×3 (03:10→15:40)
[2019-12-02] MEDS: methylPREDNISolone Sod Succinate 40 MG/1 ML INJ IV SCH ×2 (05:17→13:38)
[2019-12-02] MEDS: BUDESONIDE 0.5 MG/2 ML NEBU IH SCH (09:13)
[2019-12-02] MEDS: ARFORMOTEROL 15 MCG/2 ML NEBU IH SCH (09:13)
[2019-12-02] MEDS: clonazePAM 0.5 MG TAB PO SCH (09:34)
[2019-12-02] MEDS: NICOTINE 14 MG/24 HR PATCH TD SCH (09:34)
[2019-12-02] MEDS: LEVOTHYROXINE 25 MCG TAB PO SCH (09:34)
[2019-12-02] MEDS: MIRTAZAPINE 30 MG TAB PO SCH (09:36)
--- NOTE | 2019-12-02 12:24 | Progress Note ---
Assessment and Plan 69 y/o female with COPD exacerbation No new recs. Same as below. CM to arrange oxygen therapy. 1. Agree with no abx therapy given clear CXR and no white count 2. Discharge on Prednisone 60 daily for 3 days, 40 daily for 3 days, 20 daily for 3 days, then stop 3. Resume home regimen 4. Follow up in office in 10-14 days. Subjective Date of service: 12/02/19 Interval history: Patient failed 6 minute walk. Now requiring oxygen therapy. CM notified. Objective Vital Signs - 12hr 12/02/19 12/02/19 12/02/19 02:27 05:20 05:21 Temperature 97.7 F 98.3 F Pulse Rate 83 88 88 Respiratory 18 20 Rate Respiratory Rate [Left Upper Arm] Blood Pressure 109/62 Blood Pressure 106/55 [Right] O2 Sat by Pulse 98 92 92 Oximetry 12/02/19 12/02/19 12/02/19 05:22 05:30 06:30 Temperature 98.3 F Pulse Rate 86 77 Respiratory 18 Rate Respiratory 2 L Rate [Left Upper Arm] Blood Pressure 110/63 Blood Pressure [Right] O2 Sat by Pulse 92 96 Oximetry 12/02/19 12/02/19 07:21 10:00 Temperature 97.6 F Pulse Rate 86 Respiratory 20 20 Rate Respiratory Rate [Left Upper Arm] Blood Pressure 125/73 Blood Pressure [Right] O2 Sat by Pulse 92 92 Oximetry Constitutional: no acute distress, alert Eyes: non-icteric Neck: supple Effort: normal Ascultation: Bilateral: diminished breath sounds, wheezes CBC and BMP: 11/30/19 11:47 12/01/19 05:22 Abnormal lab findings: Abnormal Labs 11/30/19 11/30/19 12/01/19 11:47 11:47 05:22 MCV 105 H MCH 36 H Seg Neutrophils % 71.1 H BUN 18 H Creatinine 0.4 L 0.4 L Glucose 122 H 149 H Calcium 8.1 L
--- NOTE | 2019-12-02 13:01 | Discharge Summary ---
Providers - Providers Date of Admission: 11/30/19 12:50 Date of discharge: 12/02/19 Attending physician: FORTINO BEARD 11/30/19 14:14 Consult to Physician [CONS] Routine Comment: called answSandy bennett/ jean-paul Consulting Provider: JAY CALLAHAN Physician Instructions: Reason For Exam: copd 12/01/19 13:55 Physical Therapy Evaluation and Treat [CONS] Routine Comment: Reason For Exam: weakness Primary care physician: [employer] Hospitalization Reason for admission: shortness of breath Condition: Stable Hospital course: 69-year-old Mrs. Greco admitted for COPD exacerbation. This morning patient is resting comfortably and offers no specific complaints. She feels a whole lot better. Reviewed pulmonary note. Patient is medically stable for discharge she'll be discharged on home oxygen. She'll follow-up with Dr. Mercado Disposition: DC-01 TO HOME OR SELFCARE Core Measure Documentation - Palliative Care Palliative Care/ Comfort Measures: Not Applicable - Core Measures Any of the following diagnoses?: none Exam - Constitutional Vitals: Temp Pulse Resp BP Pulse Ox 97.6 F 86 20 125/73 92 12/02/19 07:21 12/02/19 07:21 12/02/19 10:00 12/02/19 07:21 12/02/19 10:00 General appearance: Present: no acute distress - EENT Eyes: Present: PERRL, EOM intact ENT: hearing intact, clear oral mucosa - Neck Neck: Present: supple, normal ROM - Respiratory Respiratory effort: normal Respiratory: bilateral: CTA, diminished - Cardiovascular Rhythm: regular Heart Sounds: Present: S1 & S2 - Extremities Extremities: No edema Peripheral Pulses: within normal limits - Abdominal General gastrointestinal: Present: soft, non-tender. Absent: hepatomegaly, splenomegaly Female genitourinary: Present: deferred - Rectal Rectal Exam: deferred - Integumentary Integumentary: Present: clear - Musculoskeletal Musculoskeletal: strength equal bilaterally - Psychiatric Psychiatric: appropriate mood/affect - Neurologic Neurologic: no focal deficits Plan Activity: advance as tolerated Weight Bearing Status: Full Weight Bearing Diet: regular Special Instructions: home oxygen via ([place]) Follow up with: PRIMARY CAREMD [Primary Care Provider] - 3-5 Days IRIS MERCADO MD [Staff Physician] - 10 Days Prescriptions: Prednisone [predniSONE ([place]) ER TAB] 20 mg PO QDAY 9 Days #18 tablet.
[2019-12-02 13:43] VITALS: BP 105/58
== END 2019-12-02 17:40 | disposition home or self-care (01) | DRG 189 ==
LOC: ED 11:13 → 2B-ACE 12:50
PROVIDERS: ADMIT Internal Medicine; ATTEND Internal Medicine
DX: J96.01 Acute respiratory failure with hypoxia (principal); E43 Unspecified severe protein-calorie malnutrition; J44.1 Chronic obstructive pulmonary disease with (acute) exacerbation; Z68.1 Body mass index [BMI] 19.9 or less, adult; F17.210 Nicotine dependence, cigarettes, uncomplicated; E03.9 Hypothyroidism, unspecified; F41.9 Anxiety disorder, unspecified; M19.90 Unspecified osteoarthritis, unspecified site; G47.00 Insomnia, unspecified; G43.909 Migraine, unspecified, not intractable, without status migrainosus; Z88.2 Allergy status to sulfonamides; Z88.6 Allergy status to analgesic agent; Z88.5 Allergy status to narcotic agent; Z71.6 Tobacco abuse counseling; Z82.49 Family history of ischemic heart disease and other diseases of the circulatory system; Z98.51 Tubal ligation status; Z87.81 Personal history of (healed) traumatic fracture
CPT/HCPCS: 36415; 71046; 80048; 84436; 84439; 84443; 85025; 93005; 93010; 94640; 94644; 94760; 96365; G0378; J1650; J2920; J2930; J3475